=== PATIENT | male | born 1970 | race Hispanic/Latino ===

== ENCOUNTER 2016-11-22 00:01 | Emergency (ER) | payer OTHER ==
[2016-11-22 00:05] VITALS: RESP 20
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
[2016-11-22 03:13] VITALS: BP 134/85; PULSE 107; TEMP 99.3
[2016-11-22 03:20] VITALS: O2SAT 96
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
== END 2016-11-22 04:07 | disposition home or self-care (01) ==
LOC: H.ER 00:01
DX: S80.01XA Contusion of right knee, initial encounter (principal); S80.811A Abrasion, right lower leg, initial encounter; V03.10XA Pedestrian on foot injured in collision with car, pick-up truck or van in traffic accident, initial encounter; Y92.410 Unspecified street and highway as the place of occurrence of the external cause